=== PATIENT | male | born 1965 | race Caucasian/White ===

== ENCOUNTER 2017-12-13 16:46 | Emergency (ER) | payer OTHER ==
[~2017-12-13] VITALS: Ht 190.5 cm; Wt 116.3 kg
[2017-12-13 16:50] VITALS: BP 151/79; PULSE 68; RESP 14; TEMP 98.3; O2SAT 98
--- NOTE | 2017-12-13 17:07 | PD ---
HPI Chief Complaint: Complaint Time Seen by Provider: 17:05 Travel History International Travel<30 days: No Contact w/Intl Traveler<30days: No Traveled to known affect area: No History of Present Illness HPI 52-year-old male came to the emergency room with history of partial urinary retention. Patient says that for past almost one week she has been unable to empty his bladder completely. Each time he goes he feels like there is more he needs to urinate but is unable to. He went to urgent care couple days ago and was discharged home on ciprofloxacin. However his symptoms have continued. His was there in the room with him she had some more light on his medical condition and said that he is an insulin-dependent diabetic and has not been very compliant with his insulin although he has started becoming more diet conscious and cutting down on sugar and carbohydrates. He is bedside blood sugar in the ER was 185. Vital signs were otherwise stable. Patient denies any fever or chills. He has never had any urinary retention symptoms in the past. [facility] Past Medical History Narrative Medical List of her past medical, surgical, social and family history reviewed from the nursing note Cardiovascular Problems: Yes (HTN) Diabetes: Yes Social History Tobacco Use: Yes Allergies-Medications (Allergen,Severity, Reaction): Coded Allergies: Penicillins (Verified Allergy, Unknown, UNKNOWN, 12/13/17) Comments List of her allergies reviewed from the nursing note. Reported Meds & Prescriptions Reported Meds & Active Scripts Active Reported Levemir Inj (Insulin Detemir) 1,000 unit/ 10 ML Vial 25 Units SQ HS Do not mix with any other Insulin. Amlodipine-Valsartan 5-320 Mg Tab 1 Tab PO DAILY Narrative Medication List of her home medications reviewed from the nursing note. Review of Systems Except as stated in HPI: all other systems reviewed are Neg Genitourinary: Positive: Decreased Urinary Output Physical Exam Narrative GENERAL: Awake, alert, mild distress SKIN: Focused skin assessment warm/dry. HEAD: Atraumatic. Normocephalic. EYES: Pupils equal and round. No scleral icterus. No injection or drainage. ENT: No nasal bleeding or discharge. Mucous membranes pink and moist. NECK: Trachea midline. No JVD. CARDIOVASCULAR: Regular rate and rhythm. No murmur appreciated. RESPIRATORY: No accessory muscle use. Clear to auscultation. Breath sounds equal bilaterally. GASTROINTESTINAL: Abdomen soft, non-tender, nondistended. Hepatic and splenic margins not palpable. MUSCULOSKELETAL: No obvious deformities. No clubbing. No cyanosis. No edema. NEUROLOGICAL: Awake and alert. No obvious cranial nerve deficits. Motor grossly within normal limits. Normal speech. PSYCHIATRIC: Appropriate mood and affect; insight and judgment normal. Data Data Last Documented VS Orders Orders Urinalysis - C+S If Indicated (12/13/17 16:51) Complete Blood Count With Diff (12/13/17 17:25) Basic Metabolic Panel (Bmp) (12/13/17 17:25) Bladder Scan PRN (12/13/17 17:25) Blood Glucose (12/13/17 17:27) Urinary Catheter Insert/Apply (12/13/17 17:46) Bag, Leg 32oz Sterile Large Ea (12/13/17 18:12) Ed Discharge Order (12/13/17 18:15) Labs Laboratory Tests Test 12/13/17 16:57 12/13/17 17:45 Urine Collection Type CLEAN CATCH Urine Color YELLOW Urine Turbidity CLEAR Urine pH 6.0 Urine Specific [place] 1.020 Urine Protein NEG mg/dL Urine Glucose (UA) 1000 OR GREATER mg/dL Urine Ketones NEG mg/dL Urine Occult Blood NEG Urine Nitrite NEG Urine Bilirubin NEG Urine Urobilinogen 0.2 MG/DL Urine Leukocyte Esterase NEG Urine WBC 0-2 /hpf Urine Squamous Epithelial Cells 0-1 /hpf Urine Mucus RARE /lpf Microscopic Urinalysis Comment CULT NOT INDICATED White Blood Count 7.0 TH/MM3 Red Blood Count 5.31 MIL/MM3 Hemoglobin 15.7 GM/DL Hematocrit 46.3 % Mean Corpuscular Volume 87.0 FL Mean Corpuscular Hemoglobin 29.5 PG Mean Corpuscular Hemoglobin Concent 33.9 % Red Cell Distribution Width 12.2 % Platelet Count 169 TH/MM3 Mean Platelet Volume 9.3 FL Neutrophils (%) (Auto) 60.3 % Lymphocytes (%) (Auto) 28.2 % Monocytes (%) (Auto) 7.2 % Eosinophils (%) (Auto) 3.7 % Basophils (%) (Auto) 0.6 % Neutrophils # (Auto) 4.2 TH/MM3 Lymphocytes # (Auto) 2.0 TH/MM3 Monocytes # (Auto) 0.5 TH/MM3 Eosinophils # (Auto) 0.3 TH/MM3 Basophils # (Auto) 0.0 TH/MM3 CBC Comment DIFF FINAL Differential Comment Blood Urea Nitrogen 18 MG/DL Creatinine 0.99 MG/DL Random Glucose 196 MG/DL Calcium Level 9.3 MG/DL Sodium Level 139 MEQ/L Potassium Level 3.9 MEQ/L Chloride Level 106 MEQ/L Carbon Dioxide Level 27.5 MEQ/L Anion Gap 6 MEQ/L Estimat Glomerular Filtration Rate 80 ML/MIN MDM Medical Decision Making Medical Screen Exam Complete: Yes Emergency Medical Condition: Yes Medical Record Reviewed: Yes Differential Diagnosis Urinary obstruction, urinary retention, UTI, hyperglycemia Narrative Course 6:25 PM UA suggestive of glucosuria patient had post void urine of 500 cc in the bladder as per bladder scanner. I ordered for a Fonseca catheter which was inserted and 500 mL's of urine was taken out. Patient will go home with a leg bag. Blood test results are within normal limit. I explained this to the patient. He will need to follow-up with urology. Procedures EKG Prior to Arrival: No Diagnosis Primary Impression: Urinary retention Additional Impression: Glucosuria Referrals: Mathew Medina MD 3 days Additional Instructions: Please call the urologist office on Friday who is name and number been given to you on this discharge paperwork. Try to get an appointment and follow-up with the urologist. The caretaking of the catheter and the bag would be as per the nurses direction. Return to the ER if condition worsens or any other new concerns. Manage her diabetes with the medication that he you have been prescribed by a primary care. Disposition: 01 DISCHARGE HOME Condition: Stable Lesley Alvarado MD December 13, 2017 17:07
[2017-12-13 17:18] LABS: BILIRUBIN, URINE NEG (NEG); BLOOD, URINE NEG (NEG); GLUCOSE,URINE 1000 OR GREATER mg/dL (NEG); KETONE, URINE NEG (NEG); NITRITE,URINE NEG (NEG); URINE COLOR YELLOW (YELLW/STRAW); URINE LEUKOCYTE ESTERASE NEG (NEG)
[2017-12-13] MEDS ORDERED: LEVEMIR SQ (17:24)
[2017-12-13] MEDS ORDERED: AMLO-170 PO (17:24)
[2017-12-13 17:40] LABS: MUCUS URINE RARE /lpf (OCC); WBC, URINE 0-2 /hpf (0-5)
[2017-12-13 17:41] LABS: SQUAMOUS EPITHELIAL CELL URINE 0-1 /hpf (0-5)
[2017-12-13 17:54] LABS: AUTOMATED NEUTROPHIL # 4.2 TH/MM3 (1.8-7.7); BASOPHIL % 0.6 % (0.0-2.0); EOSINOPHIL # 0.3 TH/MM3 (0-0.4); EOSINOPHIL % 3.7 % (0.0-4.0); HEMATOCRIT 46.3 % (39.0-51.0); HEMOGLOBIN 15.7 GM/DL (13.0-17.0); LYMPH % 28.2 % (9.0-44.0); MEAN CORPUSCULAR HEMOGLOBIN 29.5 PG (27.0-34.0); MEAN CORPUSCULAR HGB CONC 33.9 % (32.0-36.0); MEAN PLATELET VOLUME 9.3 FL (7.0-11.0); MONO % 7.2 % (0.0-8.0); MONOCYTE # 0.5 TH/MM3 (0-0.9); NEUT % 60.3 % (16.0-70.0); PLATELET COUNT 169 TH/MM3 (150-450); RED BLOOD COUNT 5.31 MIL/MM3 (4.50-5.90); RED CELL DISTRIBUTION WIDTH 12.2 % (11.6-17.2)
[2017-12-13 18:05] LABS: BICARBONATE 27.5 MEQ/L (21.0-32.0); CALCIUM 9.3 MG/DL (8.5-10.1)
[2017-12-13 18:09] LABS: CREATININE 0.99 MG/DL (0.60-1.30)
== END 2017-12-13 19:02 | disposition home or self-care (01) ==
LOC: PHED 16:46
DX: R33.9 Retention of urine, unspecified (principal); E11.9 Type 2 diabetes mellitus without complications; I10 Essential (primary) hypertension
CPT/HCPCS: 51702; 51798; 80048; 81001; 85025